=== PATIENT | female | born 1955 | race Caucasian/White ===

== ENCOUNTER 2017-08-07 12:34 | Day surgery (SDC) | END 2017-08-07 17:16 | disposition home or self-care (01) ==

== ENCOUNTER 2017-09-26 13:32 | Day surgery (SDC) | END 2017-09-26 16:09 | disposition home or self-care (01) ==

== ENCOUNTER 2018-08-13 10:56 | Day surgery (SDC) | payer OTHER ==
[2018-08-13] VITALS (13 sets, daily range): BP systolic 122–149; BP diastolic 59–80; PULSE 74–97; RESP 13–22; Ht 167.6 cm; Wt 85.9 kg
[~2018-08-13] VITALS: Ht 167.6 cm; Wt 85.9 kg
[~2018-08-13 10:56] MED LIST: ASPIRIN; BP MED; LACTATED RINGER'S 1,000 ML IV* SCH; MIDAZOLAM 1 MG/ML 2 ML INJ ONE; PHENYLephrine 10 MG INJ ONE; [UNRECOGNIZED DRUG - REMARK]; morphine SULFATE/PF (10 MG/10 ML) INJ ONE
[2018-08-13] MEDS ORDERED: OMEP40CA6 PO (11:29)
[2018-08-13] MEDS ORDERED: MELO7.5T38 PO (11:29)
[2018-08-13] MEDS ORDERED: ASPI81TA52 PO (11:30)
[2018-08-13] MEDS ORDERED: ERGO500013 PO (11:30)
[2018-08-13] MEDS ORDERED: ATOR40TA68 PO (11:31)
[2018-08-13] MEDS ORDERED: LOSA50TA14 PO (11:31)
[2018-08-13] MEDS ORDERED: GEMF600T8 PO (11:31)
[2018-08-13] MEDS ORDERED: GABA100C14 PO (11:32)
[2018-08-13] MEDS ORDERED: ESCI10TA PO (11:33)
[2018-08-13] MEDS ORDERED: ROCURONIUM 50 MG INJ ONE (12:12)
[2018-08-13] MEDS ORDERED: ETOMIDATE 20 MG INJ ONE (12:12)
[2018-08-13] MEDS ORDERED: LIDOCAINE 2% (SDV) 5 ML INJ ONE (12:12)
[2018-08-13] MEDS ORDERED: CEFAZOLIN 1 GM INJ ONE ×2 (12:13→13:45)
[2018-08-13] MEDS ORDERED: PHENYLephrine 10 MG INJ ONE (12:19)
--- NOTE | 2018-08-13 12:45 | PREAC ---
Date/Time of Note Date/Time of Note DATE: 08/13/18 TIME: 12:43 Anesthesia Eval and Record Evaluation Time Pre-Procedure Interview DATE: 08/13/18 TIME: 12:43 Age 62 Sex female NPO: 8 hrs Preoperative diagnosis endometrial hyperplasia Planned procedure hysterescopy and D &C Past Medical History Past Medical History: Includes Cardio: HTN, Dyslipidemia Surgery & Anesthesia Issues No known issue Meds Anticoagulation: No Beta Demarcus within 24 hr: No Reason Beta Demarcus not given: Pt. not on B-Demarcus Reported Medications Escitalopram Oxalate* (Lexapro*) 10 Mg Tablet, 10 MG PO DAILY, #30 TAB 08/13/18 Gabapentin* (Gabapentin*) 100 Mg Capsule, 100 MG PO QHS, #90 CAP 08/13/18 Losartan Potassium* (Losartan Potassium*) 50 Mg Tablet, 50 MG PO DAILY, TAB 08/13/18 Atorvastatin* (Atorvastatin*) 40 Mg Tablet, 40 MG PO QHS, #30 TAB 08/13/18 Gemfibrozil* (Gemfibrozil*) 600 Mg Tablet, 600 MG PO BID, TAB 08/13/18 Ergocalciferol (Vitamin D2) (VITAMIN D2) 50,000 Unit Capsule, 46640 UNIT PO EVERY SUNDAY, CAP 08/13/18 Aspirin (Low Dose Aspirin) 81 Mg Tablet.dr, 81 MG PO DAILY, #30 TAB 08/13/18 Meloxicam* (Meloxicam*) 7.5 Mg Tablet, 7.5 MG PO DAILY PRN for PAIN, #30 TAB 08/13/18 Omeprazole* (Omeprazole*) 40 Mg Capsule.dr, 40 MG PO DAILY, #30 CAP 08/13/18 Discontinued Reported Medications [Aspirin] No Conflict Check 08/07/17 [Cholesterold Med] No Conflict Check 08/07/17 [Bp Med] No Conflict Check 08/07/17 Current Medications Lactated Ringer's 1,000 ml @ 125 mls/hr Q8H IV* ; Start 08/13/18 at 07:00; Stop 08/13/18 at 14:59 Meds reviewed: Yes Allergies Coded Allergies: No Known Allergy (Unverified , 08/13/18) Allergies Reviewed: Yes Labs/Studies Labs Reviewed: Reviewed by anesthesiologist test: N/A Studies: ECG (sr), CXR (nl) Pre-procedure Exam Airway: Adequate mouth opening Mallampati: Mallampati I Teeth: Abnormal (denture) Lung: Normal Heart: Normal ASA Physical Status ASA physical status: 2 Emergency: None Planned Anesthetic General/MAC: LMA Planned Pain Management Parenteral pain med Pre-operative Attestations Prior to commencing anesthesia and surgery, the patient was re-evaluated, there was verification of: *The patient's identity *The results of appropriate recent lab work and preoperative vital signs *The above evaluation not changing prior to induction *Anesthetic plan, risk benefits, alternative and complications discussed with patient/family; questions answered; patient/family understands, accepts and wishes to proceed. PO BARRERA MD August 13, 2018 12:45
[2018-08-13] MEDS ORDERED: FENTAnyl 50 MCG/ML VIAL IV PRN ×3 (13:00)
[2018-08-13] MEDS ORDERED: ONDANSETRON 4 MG INJ IV PRN (13:00)
[2018-08-13] MEDS ORDERED: MEPERIDINE 25 MG INJ IV PRN (13:00)
[2018-08-13] MEDS ORDERED: DIPHENHYDRAMINE 50 MG INJ IV PRN (13:00)
[2018-08-13] MEDS ORDERED: HYDROmorphONE 1 MG/5 ML IV SYRINGE IV PRN ×3 (13:00)
--- NOTE | 2018-08-13 13:15 | HPN ---
Date/Time of Note Date/Time of Note DATE: 08/13/18 TIME: 13:15 Interval H&P Admission Note Pt. seen H&P reviewed: No system changes DANIEL CUETO MD August 13, 2018 13:15
[2018-08-13] MEDS ORDERED: PROPOFOL 0 ML ONE (13:38)
[2018-08-13] MEDS ORDERED: FENTAnyl 50 MCG/ML VIAL ONE (13:38)
[2018-08-13] MEDS ORDERED: METOCLOPRAMIDE 10 MG INJ ONE (13:39)
[2018-08-13] MEDS ORDERED: ONDANSETRON 4 MG INJ ONE (13:39)
[2018-08-13] MEDS ORDERED: PROPOFOL 20 ML ONE (13:45)
--- NOTE | 2018-08-13 14:29 | SIPON ---
Date/Time of Note Date/Time of Note DATE: 08/13/18 TIME: 14:27 Operative Report Preoperative Diagnosis prominent endometrium ( endometrial hyperplasia) Postoperative Diagnosis see pathologic report atrophic endometrium Operation/Procedure Performed [facility]SC endometrial shaving add uterine curettage Surgeon see signature line perinatal breastfeeding assistant KAYLYN from metronic Anesthesia: general Estimated blood loss: none Transfusion Required none Specimen endometrial curettings Grafts/Implants none Complications none DANIEL CUETO MD August 13, 2018 14:29
--- NOTE | 2018-08-13 14:30 | PD.PPDC ---
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
--- NOTE | 2018-08-14 20:30 | PAC ---
Date/Time of Note Date/Time of Note DATE: 08/14/18 TIME: 20:30 Post-Anesthesia Notes Post-Anesthesia Note Last documented vital signs Vital Signs Date Temp Pulse Resp B/P (MAP) Pulse Ox O2 O2 Flow FiO2 Time Delivery Rate 08/13/18 97.6 77 18 122/66 96 16:25 (84) 08/13/18 Room Air 15:21 Activity: WNL Respiratory function: WNL Cardiovascular function: WNL Mental status: Baseline Pain reasonably controlled: Yes Hydration appropriate: Yes Nausea/Vomiting absent: No PO BARRERA MD August 14, 2018 20:30
--- NOTE | 2018-08-14 21:17 | OPR ---
DATE OF OPERATION: 08/13/2018 PREOPERATIVE DIAGNOSIS: Prominent endometrium, rule out endometrial hyperplasia. POSTOPERATIVE DIAGNOSIS: Atrophic endometrium. See pathological report. OPERATION PERFORMED: Hysteroscopic endometrial shaving and additional traditional uterine curettage. ANESTHESIA: General. ANESTHESIOLOGIST: Dr. Samuels. SURGEON: John Piedra MD FEDERAL APPELLATE CLERK: Maninder from the [employer]. ESTIMATED BLOOD LOSS: None. PROCEDURE: Under proper induction of general anesthesia, the patient was placed in dorsal lithotomy position. Perineal area and vagina wall was prepped and draped in usual aseptic manner. There was f ound to have a full bladder, so Davis catheter drained about 300 mL and bimanual examination revea led the uterus was retroflexed and in normal size and consistency. There was no palpable adnexal pat hology. Weighted speculum was introduced, cervix identified, which was grasped with a single tooth t enaculum. Cervix was clear. Cavity was sounded, which was 8 cm in depth and os dilated up to 7 and then hysteroscope, which was prepared in usual fashion with normal saline, connected and hysteroscope was introduced gradually through the endocervix and visualized the fundus and both ostium clearly an d there was no evidence of endometrial hyperplasia. As a matter of fact, it was very atrophied side so the soft tissue shaver was introduced after the usual fashion and the entire cavity was shaved in all directions. After shaving was done and the traditional uterine curettage done with a small curet , obtaining very scanty tissue which was sent together. Photo was taken prior to shaving. All the i nstruments were removed from the operative field. The patient was sent to the recovery room in stabl e condition. FLUID DEFICIT: 360 mL Dictated By: JOHN OZUNA/ZOLTAN Conf#: [id number] DID#: [id number]
== END 2018-08-13 16:31 | disposition home or self-care (01) ==
LOC: SDS 10:56
PROVIDERS: ATTEND Obstetrics & Gynecology
DX: N85.00 Endometrial hyperplasia, unspecified (principal); I10 Essential (primary) hypertension
CPT/HCPCS: 58558; 71045; 88305; J0690; J2405; J2765; J3010; Z7512; Z7610; J2250; J2274

== ENCOUNTER 2019-02-06 12:50 | Emergency (ER) | payer OTHER ==
[~2019-02-06] VITALS: Ht 172.7 cm; Wt 79.0 kg
[~2019-02-06 12:50] MED LIST changes: +ACET325T33 PO; +ASPI81TA52 PO; -ASPIRIN; +ATOR40TA68 PO; -BP MED; +CEPH-443 PO; +CODE10LI PO; +ERGO500013 PO; +ESCI10TA PO; +GABA100C14 PO; +GEMF600T8 PO; +IBUP-1542 PO; -LACTATED RINGER'S 1,000 ML IV* SCH; +LOSA50TA14 PO; +MELO7.5T38 PO; -MIDAZOLAM 1 MG/ML 2 ML INJ ONE; +OMEP40CA38 PO; -PHENYLephrine 10 MG INJ ONE; -[UNRECOGNIZED DRUG - REMARK]; -morphine SULFATE/PF (10 MG/10 ML) INJ ONE
[2019-02-06 13:01] VITALS: Ht 172.7 cm; Wt 79.0 kg
[2019-02-06] MEDS ORDERED: KETOROLAC 15 MG INJ IV STA (14:37)
[2019-02-06] MEDS ORDERED: ACETAMINOPHEN 500 MG TAB PO STA (14:37)
[2019-02-06] MEDS ORDERED: SOD CHLORIDE 0.9% 1,000 ML IV ONE (15:00)
[2019-02-06] MEDS ORDERED: ONDANSETRON 4 MG TAB PO ONE (15:00)
[2019-02-06] MEDS ORDERED: ONDANSETRON 4 MG INJ IV STA (15:06)
[2019-02-06] MEDS ORDERED: ALBUTEROL 0.083% (NEB) 2.5 MG/3 ML AMP HHN STA (15:54)
[2019-02-06] MEDS ORDERED: POTASSIUM CHLORIDE (SR) 20 MEQ TAB PO STA (15:54)
[2019-02-06] MEDS ORDERED: IPRATROPIUM (NEB) 0.5 MG/2.5 ML AMP HHN ONE (16:00)
[2019-02-06] MEDS ORDERED: DEXAMETHASONE 10 MG/ML 1 ML INJ IM ONE (16:00)
[2019-02-06] MEDS ORDERED: CEFTRIAXONE 1 GM/50 ML (PMX) 50 ML IVPB ONE (16:30)
[2019-02-06 17:02] VITALS: BP 124/62; PULSE 98; RESP 17
== END 2019-02-06 17:03 | disposition home or self-care (01) ==
LOC: FTE 12:50
DX: N39.0 Urinary tract infection, site not specified (principal); J06.9 Acute upper respiratory infection, unspecified; R05 Cough; Z79.82 Long term (current) use of aspirin
CPT/HCPCS: 71046; 80053; 81001; 83605; 83690; 85025; 87086; 87400; 94664; 96365; 96372; 96375; J0696; J1100; J1885; J2405; Z7502; Z7610